=== PATIENT | female | born 1935 | race Caucasian/White ===

== ENCOUNTER → 2017-02-25 | Outpatient (CLI) | payer MEDICARE ==
[2017-02-25 13:25] LABS: BICARBONATE 26.7 MEQ/L (21.0-32.0); POTASSIUM 4.1 MEQ/L (3.5-5.1)
== END ==
LOC: CLAB 12:16
PROVIDERS: ATTEND Internal Medicine Interventional Cardiology
DX: N28.9 Disorder of kidney and ureter, unspecified (principal)
CPT/HCPCS: 36415; 80048

== ENCOUNTER → 2017-06-03 | Outpatient (CLI) | payer MEDICARE ==
[2017-06-03 10:46] LABS: ALBUMIN 3.5 GM/DL (3.4-5.0); ALT (GPT) 20 U/L (10-53); AST (GOT) 17 U/L (15-37); BICARBONATE 25.7 MEQ/L (21.0-32.0); BLOOD UREA NITROGEN 27 MG/DL (7-18); CHLORIDE 108 MEQ/L (98-107); CREATININE 1.46 MG/DL (0.50-1.00); DIRECT BILIRUBIN ADULT 0.1 MG/DL (0.0-0.2); GLOMERULAR FILTRATION RATE 34 ML/MIN (>89); GLUCOSE,FASTING 188 MG/DL (74-99); SODIUM (NA) 140 MEQ/L (136-145)
[2017-06-03 10:49] LABS: ALKALINE PHOSPHATASE 91 U/L (45-117); CHOLESTEROL 133 MG/DL (120-200); CHOLESTEROL/ HDL RATIO 2.83 RATIO; HDL CHOLESTEROL 46.9 MG/DL (40.0-60.0); LDL CHOLESTEROL 59 MG/DL (0-99); TOTAL BILIRUBIN ADULT 0.4 MG/DL (0.2-1.0); TOTAL PROTEIN 6.6 GM/DL (6.4-8.2); TRIGLYCERIDES 134 MG/DL (42-150)
== END ==
LOC: CLAB 09:55
PROVIDERS: ATTEND Internal Medicine Interventional Cardiology
DX: E78.5 Hyperlipidemia, unspecified (principal); Z79.899 Other long term (current) drug therapy
CPT/HCPCS: 36415; 80053; 80061; 82248; 82550

== ENCOUNTER → 2017-10-12 | Outpatient (CLI) | payer MEDICARE ==
[2017-10-12 10:47] LABS: HEMATOCRIT 35.9 % (35.0-46.0); HEMOGLOBIN 12.3 GM/DL (11.6-15.3); MEAN CELL VOLUME 93.4 FL (80.0-100.0); MEAN CORPUSCULAR HGB CONC 34.3 % (32.0-36.0); MEAN PLATELET VOLUME 8.4 FL (7.0-11.0); PLATELET COUNT 201 TH/MM3 (150-450); RED BLOOD COUNT 3.85 MIL/MM3 (4.00-5.30); RED CELL DISTRIBUTION WIDTH 12.9 % (11.6-17.2); WHITE BLOOD COUNT 6.6 TH/MM3 (4.0-11.0)
[2017-10-12 10:59] LABS: BILIRUBIN, URINE NEG (NEG); BLOOD, URINE NEG (NEG); GLUCOSE,URINE NEG (NEG); KETONE, URINE NEG (NEG); MUCUS URINE FEW /lpf (OCC); NITRITE,URINE NEG (NEG); PH, URINE 5.5 (5.0-8.5); SQUAMOUS EPITHELIAL CELL URINE 1 /hpf (0-5); URINE COLOR LIGHT-YELLOW (YELLW/STRAW); URINE LEUKOCYTE ESTERASE TRACE (NEG)
[2017-10-12 11:04] LABS: ALBUMIN 3.3 GM/DL (3.4-5.0); BICARBONATE 26.4 MEQ/L (21.0-32.0); CALCIUM 8.3 MG/DL (8.5-10.1); CREATININE 1.53 MG/DL (0.50-1.00); PHOSPHORUS 2.9 MG/DL (2.5-4.9)
== END ==
LOC: CLAB 10:00
PROVIDERS: ATTEND Internal Medicine Nephrology
DX: N18.3 Chronic kidney disease, stage 3 (moderate) (principal); E55.9 Vitamin D deficiency, unspecified
CPT/HCPCS: 36415; 80069; 81001; 82306; 82570; 83970; 84156; 85027